=== PATIENT | male | born 1965 | race Caucasian/White ===

== ENCOUNTER 2021-05-28 19:05 | Emergency (ER) | payer MEDICARE, SELFPAY ==
[2021-05-28 19:15] VITALS: BP 83/58; PULSE 104; RESP 14; TEMP 36.8; O2SAT 94
--- NOTE | 2021-05-28 19:27 | ECG_ITS ---
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
[2021-05-28 19:41] VITALS: BP 91/39; PULSE 99
[2021-05-28 19:49] VITALS: BP 91/39; PULSE 48
--- NOTE | 2021-05-28 19:50 | ED.CHESTPAIN ---
HPI - Chest Pain General Chief Complaint: Chest Pain Stated Complaint: Blood Pressure/Chest Pain Time Seen by Provider: 05/28/21 19:26 Source: patient and RN notes reviewed Mode of arrival: ambulatory Limitations: no limitations History of Present Illness HPI narrative: Patient presents today complaining of intermittent left-sided chest pain for the past 2 weeks that radiates to the neck. Symptoms have worsened over the last couple of days to include sweats, shortness of breath, nausea and vomiting. Patient states he has vomited 3 times today and filled the toilet bowl with blood. He is currently in treatment for the last 3 days for pneumonia by his PCP with Levaquin. He currently rates his pain 5/10 and describes the pain as pressure. He has been taking Tylenol No. 4 for pain as needed. States coughing worsens his pain, but cannot describe anything that makes his pain better. PCP just started him on some blood pressure medication as well. MD complaint: chest pain Related Data Home Medications Medication Instructions Recorded Confirmed acetaminophen-codeine 1 tablet PO Q6H PRN 05/28/21 05/28/21 albuterol sulfate 2 puff INHALATION Q4H PRN 05/28/21 05/28/21 amlodipine 10 mg PO DAILY 05/28/21 05/28/21 aspirin [Aspirin Low Dose] 81 mg PO DAILY 05/28/21 05/28/21 diphenoxylate-atropine 1 tablet PO QID 05/28/21 05/28/21 escitalopram oxalate 10 mg PO DAILY 05/28/21 05/28/21 levofloxacin 500 mg PO DAILY 05/28/21 05/28/21 lisinopril 40 mg PO DAILY 05/28/21 05/28/21 Allergies Allergy/AdvReac Type Severity Reaction Status Date / Time ketorolac [From Toradol] Allergy Intermediate Rash Verified 05/28/21 19:41 Review of Systems Review of Systems: CONSTITUTIONAL: Denies body aches, fever, chills. + Fatigue EYES: Denies visual changes, redness, or discharge. ENT: Denies rhinorrhea, congestion, sore throat, or otalgia. CARDIOVASCULAR: Denies palpitations, or edema.+ Chest pain RESPIRATORY: + Cough, shortness of breath GASTROINTESTINAL: Denies abdominal pain, diarrhea.+ Nausea and vomiting GENITOURINARY: Denies dysuria or hematuria. SKIN: Denies rash, itching, or wounds. MUSCULOSKELETAL: Denies back pain, joint pain, or myalgia. NEUROLOGIC: Denies headache, numbness, tingling, or weakness. PSYCH: Denies depression or anxiety. [facility]LY [facility] Past Medical History Medical History (Updated 05/28/21 @ 20:16 by Moraima Johnson, TRACK INSPECTING SUPERVISOR, ) Hypertension Comments At time of signature, I have reviewed and agree with nursing past medical, surgical, social and family history unless otherwise noted. Please see nursing chart for further information. There is no relevant family history pertinent to the presenting complaint Exam Narrative: GENERAL: Ill-appearing, well-nourished, and in no acute distress. Generalized skin pallor HEAD: Normocephalic, atraumatic. EYES: EOMI. No redness or drainage. Conjunctivae normal. ENT: Mucous membranes pink and moist. NECK: Normal AROM. Supple. No lymphadenopathy. CHEST: No respiratory distress. Pronounced crackles in the bilateral bases. Able to speak in complete sentences. HEART: Regular rate and rhythm. No murmur appreciated. Normal peripheral pulses. ABDOMEN: Soft, nontender, nondistended, normal active bowel sounds. MUSCULOSKELETAL: No bony tenderness. EXTREMITIES: Normal range of motion. No edema. SKIN: Warm, dry, no rash. Capillary refill normal. Normal skin turgor. NEURO: No focal deficits. Alert and oriented x3. Gait steady. PSYCH: Normal affect. No signs of depression or anxiety. Course Course Level of Care: Express Care Visit Vital Signs Vital signs: Vital Signs Temperature 98.2 F 05/28/21 19:15 Pulse Rate 104 H 05/28/21 19:15 Respiratory Rate 14 05/28/21 19:15 Blood Pressure 83/58 L 05/28/21 19:15 Pulse Oximetry 94 05/28/21 19:15 Temperature 98.2 F 05/28/21 19:15 Pulse Rate 48 L 05/28/21 19:49 Respiratory Rate 14 05/28/21 19:15 Blood Pressure 91/39 L 0
== END 2021-05-28 19:46 | disposition short-term general hospital (02) ==
PROVIDERS: Emergency Provider Nurse Practitioner; PCP Family Medicine
DX: I21.3 ST elevation (STEMI) myocardial infarction of unspecified site (principal); R07.9 Chest pain, unspecified; I10 Essential (primary) hypertension
CPT/HCPCS: 93005; 99205; A9270; G0463